=== PATIENT | male | born 1990 | race Caucasian/White ===

== ENCOUNTER → 2023-05-27 13:45 | Outpatient (REF) | payer OTHER, SELFPAY | LOC: MRI 3T 13:45 | PROVIDERS: ATTENDING PHYSICIAN Orthopaedic Surgery; FAMILY PHYSICIAN Family Medicine | DX: M24.812 Other specific joint derangements of left shoulder, not elsewhere classified (principal); M75.22 Bicipital tendinitis, left shoulder | CPT/HCPCS: 23350; 73040; 73222 ==